=== PATIENT | female | born 1950 | race Caucasian/White ===

== ENCOUNTER 2017-08-30 05:53 | Emergency (ER) | payer OTHER ==
[~2017-08-30] VITALS: Ht 162.6 cm; Wt 99.7 kg
[2017-08-30 06:00] VITALS: TEMP 36.7; Ht 162.6 cm; Wt 99.7 kg
[2017-08-30 06:43] LABS: URINE APPEARANCE CLEAR (CLEAR); URINE BILIRUBIN NEG (NEG); URINE COLOR YELLOW; URINE NITRITE NEG (NEG); URINE SPECIFIC GRAVITY 1.022 (1.000-1.030); UROBILINOGEN NEG (NEG)
[2017-08-30 06:45] LABS: MANUAL MICROSCOPIC REQUIRED? NO; REVIEW REQ? NO
[2017-08-30 06:51] LABS: BASO % 0.3 %; BASO ABS # 0.02 K/uL (0-0.2); COMPLETE YES; EOS % 1.7 %; HEMATOCRIT 36.4 % (37-47); IG% 0.3 %; LYMPH % 15.2 %; LYMPH ABS # 1.01 K/uL (1.2-3.4); MEAN CELL VOLUME 92.6 fL (80-100); MEAN CORPUSCULAR HGB CONC 33.5 g/dl (32-36); MEAN PLATELET VOLUME 10.7 fL (7.4-10.4); MONO % 9.6 %; NEUT % 72.9 %; PLATELET COUNT 191 K/uL (130-400); RED BLOOD COUNT 3.93 M/uL (4.2-5.4); WHITE BLOOD COUNT 6.64 K/uL (4.8-10.8)
[2017-08-30 07:00] LABS: ALT/SGPT 30 U/L (12-78); AMYLASE 74 U/L (25-115); BLOOD UREA NITROGEN 18 mg/dl (7-18); BUN/CREATININE RATIO 21.8 (10-20); CALCIUM 8.8 mg/dl (8.5-10.1); CARBON DIOXIDE 31 mmol/L (21-32); CHLORIDE 104 mmol/L (98-107); CREATININE 0.82 mg/dl (0.60-1.20); GLUCOSE 101 mg/dl (70-99); POTASSIUM 4.2 mmol/L (3.5-5.1); SODIUM 140 mmol/L (136-145)
--- NOTE | 2017-08-30 07:02 | DIAGNOSTIC IMAGING REPORT ---
ABDOMEN 2VIEW W/PA CHEST RTN CLINICAL HISTORY: 66 years-old Female presenting with RUQ abdominal pain. TECHNIQUE: PA view of the chest and supine and upright views of the abdomen were obtained. COMPARISON: None. FINDINGS: Cardiomediastinal silhouette normal. Note made of an azygos fissure. Vague opacities in the peripheral right mid lung and possibly left mid lung. Cholecystectomy clips noted. Overall paucity of bowel gas, nonspecific. No convincing evidence of obstruction. No evidence of free intraperitoneal gas, pneumatosis, or portal venous gas. Multilevel degenerative changes of the spine. IMPRESSION: 1. Vague opacities in the periphery of the right mid lung and possibly left midlung. Further evaluation with chest CT to be considered as clinically warranted. 2. No radiographic evidence of acute intra-abdominal pathology. Electronically signed by: Madhu Ren M.D. 08/30/2017 7:01 AM Dictated Date/Time: 08/30/2017 6:59 AM
[2017-08-30 07:05] LABS: ALKALINE PHOSPHATASE 124 U/L (45-117); AST/SGOT 14 U/L (15-37); CKMB/CK RATIO 1.6 (0-3.0)
[2017-08-30] MEDS ORDERED: PRLSR20 PO (07:14)
[2017-08-30] MEDS ORDERED: ESCI1TAB10 PO (07:14)
[2017-08-30] MEDS ORDERED: LISI-729 PO (07:14)
[2017-08-30] MEDS ORDERED: MONT1TAB3 PO (07:14)
[2017-08-30] MEDS ORDERED: ALPR-411 PO (07:14)
[2017-08-30] MEDS ORDERED: LEVO50TA6 PO (07:14)
[2017-08-30] MEDS ORDERED: FURO-85 PO (07:14)
--- NOTE | 2017-08-30 07:40 | EMERGENCY ROOM VISIT NOTE ---
ED Visit Note First contact with patient: 06:04 I saw this patient in conjunction with Nigel Cortes PA-C. I agree with his decision-making and treatment plan.
[2017-08-30] MEDS ORDERED: OPTIRAY 320 IV PRN (07:45)
[2017-08-30 08:09] VITALS: BP 141/81; PULSE 77; O2SAT 95
--- NOTE | 2017-08-30 08:11 | DIAGNOSTIC IMAGING REPORT ---
(CHEST FOR PE) ANGIO WITH CLINICAL HISTORY: 66 years-old Female presenting with right upper quadrant pain, radiating pain to the right side and back and under the breast, nausea. TECHNIQUE: Multidetector CT angiography of the chest was performed after administration of intravenous contrast. 3-D volumetric and/or maximum intensity projection (MIP) images were subsequently reconstructed for review. IV contrast: 94 mL of Optiray 320. A dose lowering technique was used consistent with the principles of ALARA (as low as reasonably achievable). COMPARISON: Correlation made to chest x-ray performed earlier the same day. CT DOSE (mGy.cm): The estimated cumulative dose is 463.64 mGy.cm. FINDINGS: [place] topogram: Unremarkable. Pulmonary vasculature: The study is adequate for assessment of the pulmonary vascular tree. No filling defect within the pulmonary arteries to suggest embolus. Main pulmonary artery is not enlarged. No flattening of the interventricular septum. No intracardiac intracardiac filling defect. No reflux of contrast into the hepatic veins. Remaining chest: On soft tissue windows, normal thyroid and thoracic inlet. Small bilateral hilar lymph nodes noted. Normal aorta. Normal heart size. No pericardial or pleural effusion. Borderline hepatic steatosis. Small hiatal hernia. On lung windows, multifocal nodular opacities affecting all 5 lobes to varying degrees. Much of the nodular consolidation is peripheral/subpleural. No cavitation. Mild mosaic attenuation could suggest small airways disease. Large airways patent. No bronchiectasis. Incidental note made of an azygos fissure. On bone windows, degenerative changes of the spine. IMPRESSION: 1. No evidence of pulmonary embolus. 2. Multifocal peripheral nodular opacities affecting all 5 lobes to varying degrees. This could represent multifocal bronchopneumonia. Differential considerations include eosinophilic pneumonia, eosinophilic granulomatosis with polyangiitis, and sarcoidosis. Electronically signed by: Madhu Ren M.D. 08/30/2017 8:09 AM Dictated Date/Time: 08/30/2017 8:00 AM
[2017-08-30] MEDS ORDERED: LEVO-366 PO (08:27)
--- NOTE | 2017-08-30 08:34 | EMERGENCY ROOM VISIT NOTE ---
History First contact with patient: 06:04 Chief Complaint: ABDOMINAL PAIN Stated Complaint: SEVERE STOMACH PAIN Nursing Triage Summary: pt reports RUQ abdominal pain awoke her from sleep at 0300 + nausea pain radiates around to back on R side and up under breast. History of Present Illness The patient is a 66 year old white female who presents to the Emergency Room with complaints of right upper quadrant abdominal pain that radiates to her right back. Symptoms woke her from sleep at 3 AM. She complains of nausea but no vomiting. She did move her bowels this morning without change in her symptoms. She denies any urinary tract symptoms. No urgency or burning. She has no shortness of breath or chest pain. He points to the right upper quadrant as her area of discomfort. She has a previous cholecystectomy. No treatment yet. Her accompanies her today. No recent history of similar episode. She ate a normal dinner. Review of Systems REVIEW OF SYSTEM: HEENT: No dizziness, visual problems, hearing loss, or tinnitus. There is no difficulty swallowing and no oral lesions are present. LYMPH: No adenopathy. PULMONARY: No cough, shortness of breath, sputum production or hemoptysis. CARDIOVASCULAR: No chest pain, palpitations, shortness of breath or peripheral edema. GASTROINTESTINAL: No diarrhea, constipation, or vomiting. GENITOURINARY: No dysuria, frequency, urgency or nocturia. NEUROLOGIC: No weakness, muscle tenderness, epilepsy or history of neurological problems. Positive history of Parkinson's disease. MUSCULOSKELETAL: No history of joint tenderness/swelling. No history of arthritis or arthralgias. SKIN: No rashes or lesions. PSYCHIATRIC: No history of depression or mental illness. ENDOCRINE: No history of diabetes, thyroid disorders, or abnormal hair growth. Past Medical/Surgical History Previous surgeries: Parkinson's disease. Previous Surgeries: Cholecystectomy Family History Noncontributory. Social History Smoking Status: Never Smoker Smokeless Tobacco Use: No Drug Use: none Marital Status: Housing Status: lives with family Current/Historical Medications Scheduled Escitalopram Oxalate (Lexapro), 20 MG PO DAILY Furosemide (Lasix), 20 MG PO DAILY Levofloxacin (Levaquin), 500 MG PO DAILY Levothyroxine Sodium (Levothyroxine Sodium), 1 TAB PO DAILY Lisinopril (Zestril), 5 MG PO DAILY Montelukast Sodium (Singulair), 10 MG PO DAILY Omeprazole (Prilosec), 20 MG PO DAILY Scheduled PRN Alprazolam (Xanax), 0.5 TAB PO for Anxiety Allergies Coded Allergies: No Known Allergies (Unverified , 08/30/17) Physical Exam Vital Signs Date Time Temp Pulse Resp B/P (MAP) Pulse Ox O2 Delivery O2 Flow Rate FiO2 08/30/17 08:09 77 16 141/81 95 08/30/17 06:00 36.7 102 20 147/93 95 Room Air Physical Exam Gen.: Well-developed, well-nourished, elderly white female, in no acute distress. Obvious discomfort. Laying on a bed. Alert and oriented. Skin:Warm and dry with good turgor. No rashes or lesions. No ecchymosis or erythema. The patient is not diaphoretic. No abrasions. HEENT: Normocephalic atraumatic. Eyes PERRLA, EOMI. No conjunctiva or scleral injection. Nares without significant drainage. No epistaxis. Oropharynx without erythema or exudate. Uvula midline, oral mucosa moist. No lesions present. Heart: Heart RRR. No MGR. Peripheral pulses are 2+. Lungs: Lungs are clear to auscultation. No crackles rhonchi or wheezing. Good air movement. The patient is able to take a deep breath. Abdomen: Abdomen was inspected, auscultated, and palpated. Obese. Bowel sounds present x 4. Soft, right upper quadrant tender to palpation. No hepato- splenomegaly. No masses noted. No rebound, negative Zheng sign. No pain over McBurney's point. No CVA tenderness. Musculoskeletal: Gross motor function of the upper and lower extremities is intact and unremarkable. No pain with palpation of the chest wall. Neurologic: Gross sensation is intact across the upper and lower extremities by soft touch. Tremors in the extremities are present. Medical Decision & Procedures ER Provider Diagnostic Interpretation: Acute abdominal x-ray series with chest film was obtained today. This was read by radiology as unremarkable for free air or obstruction. Right middle lobe opacity was noted and CT scan was suggested. CT scan imaging of the chest with IV contrast for PE study was obtained. This was read by radiology as No evidence of pulmonary embolus. Multifocal peripheral nodular opacities affecting all 5 lobes to varying degrees. This could represent multifocal bronchopneumonia. Differential considerations include eosinophilic pneumonia, eosinophilic granulomatosis with polyangiitis, and sarcoidosis. EKG obtained today shows a junctional rhythm with a rate of 72. No acute ST or T-wave changes. It is adversely affected by her tremors from her Parkinson's. Laboratory Results 08/30/17 06:25 Red Blood Count 3.93, Mean Corpuscular Volume 92.6, Mean Corpuscular Hemoglobin 31.0, Mean Corpuscular Hemoglobin Concent 33.5, Mean Platelet Volume 10.7, Neutrophils (%) (Auto) 72.9, Lymphocytes (%) (Auto) 15.2, Monocytes (%) (Auto) 9.6, Eosinophils (%) (Auto) 1.7, Basophils (%) (Auto) 0.3, Neutrophils # (Auto) 4.84, Lymphocytes # (Auto) 1.01, Monocytes # (Auto) 0.64, Eosinophils # (Auto) 0.11, Basophils # (Auto) 0.02 08/30/17 06:25 Test 08/30/17 06:25 08/30/17 06:35 White Blood Count 6.64 K/uL (4.8-10.8) Red Blood Count 3.93 M/uL (4.2-5.4) Hemoglobin 12.2 g/dL (12.0-16.0) Hematocrit 36.4 % (37-47) Mean Corpuscular Volume 92.6 fL (80-100) Mean Corpuscular Hemoglobin 31.0 pg (25-34) Mean Corpuscular Hemoglobin Concent 33.5 g/dl (32-36) Platelet Count 191 K/uL (130-400) Mean Platelet Volume 10.7 fL (7.4-10.4) Neutrophils (%) (Auto) 72.9 % Lymphocytes (%) (Auto) 15.2 % Monocytes (%) (Auto) 9.6 % Eosinophils (%) (Auto) 1.7 % Basophils (%) (Auto) 0.3 % Neutrophils # (Auto) 4.84 K/uL (1.4-6.5) Lymphocytes # (Auto) 1.01 K/uL (1.2-3.4) Monocytes # (Auto) 0.64 K/uL (0.11-0.59) Eosinophils # (Auto) 0.11 K/uL (0-0.5) Basophils # (Auto) 0.02 K/uL (0-0.2) RDW Standard Deviation 42.6 fL (36.4-46.3) RDW Coefficient of Variation 12.6 % (11.5-14.5) Immature Granulocyte % (Auto) 0.3 % Immature Granulocyte # (Auto) 0.02 K/uL (0.00-0.02) Anion Gap 5.0 mmol/L (3-11) Est Creatinine Clear Calc Drug Dose 76.4 ml/min Estimated GFR () 85.8 Estimated GFR (Non- 74.0 BUN/Creatinine Ratio 21.8 (10-20) Calcium Level 8.8 mg/dl (8.5-10.1) Total Bilirubin 0.4 mg/dl (0.2-1) Aspartate Amino Transf (AST/SGOT) 14 U/L (15-37) Alanine Aminotransferase (ALT/SGPT) 30 U/L (12-78) Alkaline Phosphatase 124 U/L (45-117) Total Creatine Kinase 57 U/L (26-192) Creatine Kinase MB 0.9 ng/ml (0.5-3.6) Creatine Kinase MB Ratio 1.6 (0-3.0) Troponin I < 0.015 ng/ml (0-0.045) Total Protein 7.2 gm/dl (6.4-8.2) Albumin 3.6 gm/dl (3.4-5.0) Globulin 3.6 gm/dl (2.5-4.0) Albumin/Globulin Ratio 1.0 (0.9-2) Amylase Level 74 U/L (25-115) Lipase 153 U/L (73-393) Urine Color YELLOW Urine Appearance CLEAR (CLEAR) Urine pH 5.0 (4.5-7.5) Urine Specific [place] 1.022 (1.000-1.030) Urine Protein NEG (NEG) Urine Glucose (UA) NEG (NEG) Urine Ketones NEG (NEG) Urine Occult Blood NEG (NEG) Urine Nitrite NEG (NEG) Urine Bilirubin NEG (NEG) Urine Urobilinogen NEG (NEG) Urine Leukocyte Esterase NEG (NEG) CBC, chem panel, CK/CK-MB, troponin, and UA were obtained. They are unremarkable. ED Course Patient and her were educated regarding today's findings. Conservative care measures were discussed. IV was established. Labs were obtained. Abdominal x-ray was obtained. Due to the findings in the chest, CT scan imaging of the chest with IV contrast was obtained. These were read by radiology as positive for bronchopneumonia. Patient was prescribed Levaquin 500 milligrams daily for 10 days. Follow-up with her PCP at home in [place] for reexamination this week. She has a Flovent inhaler and will continue to use this. Tylenol and Motrin every 6 hours as needed for any mild discomfort or fever. Return to the nearest ED for any acute changes. Copies of her films were provided to her on disc for comparison. Patient was seen in conjunction with Dr. Gottlieb, who also evaluated the patient and concurred with today's diagnosis and treatment plan. Medical Decision Possibility of [place], CAD, pneumonia, PE, renal stone, gastroenteritis, perforation , obstruction, pancreatitis, and colitis were considered among others. Impression Primary Impression: Bronchopneumonia Departure Information Prescriptions Levofloxacin (Levaquin) 500 Mg Tab 500 MG PO DAILY, #10 TAB Prov: Nigel Cortes,P.A. 08/30/17 Referrals No Doctor, Assigned (PCP) Patient Instructions My [facility]
== END 2017-08-30 08:57 | disposition home or self-care (01) ==
LOC: C.EDB 05:55 → C.EDA 08:57
DX: J18.0 Bronchopneumonia, unspecified organism (principal); G20 Parkinson's disease; Z90.49 Acquired absence of other specified parts of digestive tract; Z79.899 Other long term (current) drug therapy